=== PATIENT | male | born 1935 | race Two or more races ===

== ENCOUNTER 2019-06-06 14:10 | Inpatient (IN) | payer OTHER ==
[~2019-06-06] VITALS: Ht 188 cm; Wt 66.2 kg
[2019-06-15] MEDS ORDERED: SYNTHROID175 MCG PO (13:45)
[2019-06-15] MEDS ORDERED: COZAAR100 MG PO (13:45)
[2019-06-15] MEDS ORDERED: TIMOPTIC10 ML OTIC (13:46)
[2019-06-15] MEDS ORDERED: LATANOPROST 0.7.5 ML OP (13:46)
[2019-06-30] MEDS ORDERED: LOSARTAN POTAS100 MG PO (13:59)
[2019-06-30] MEDS ORDERED: CLOPIDOGREL BIS75 MG PO (13:59)
[2019-06-30] MEDS ORDERED: LIPITOR40 MG PO (13:59)
[2019-06-30] MEDS ORDERED: ASA-EC81 MG PO (14:00)
[2019-06-30] MEDS ORDERED: LOPRESSOR25 MG PO (14:00)
== END 2019-06-30 14:58 | disposition home or self-care (01) | DRG 329 ==
LOC: O/R 06-15 10:45 → SURG 06-19 07:00 → O/R 06-19 07:32 → SURG 06-19 10:45
PROVIDERS: ADMIT Surgery
PROC: 0DTP4ZZ Resection of Rectum, Percutaneous Endoscopic Approach (ICD-10-PCS; 2019-06-19)
PROC: 0DTQ4ZZ Resection of Anus, Percutaneous Endoscopic Approach (ICD-10-PCS; 2019-06-19)
PROC: 0D1N4Z4 Bypass Sigmoid Colon to Cutaneous, Percutaneous Endoscopic Approach (ICD-10-PCS; 2019-06-19)
PROC: 0DTN4ZZ Resection of Sigmoid Colon, Percutaneous Endoscopic Approach (ICD-10-PCS; principal; 2019-06-19 07:00)
PROC: 4A12X4Z Monitoring of Cardiac Electrical Activity, External Approach (ICD-10-PCS; 2019-06-20)
PROC: 4A033R1 Measurement of Arterial Saturation, Peripheral, Percutaneous Approach (ICD-10-PCS; 2019-06-20)
PROC: 30233N1 Transfusion of Nonautologous Red Blood Cells into Peripheral Vein, Percutaneous Approach (ICD-10-PCS; 2019-06-22)
PROC: B246ZZZ Ultrasonography of Right and Left Heart (ICD-10-PCS; 2019-06-22)
PROC: BW28ZZZ Computerized Tomography (CT Scan) of Head (ICD-10-PCS; 2019-06-22)
PROC: BB24ZZZ Computerized Tomography (CT Scan) of Bilateral Lungs (ICD-10-PCS; 2019-06-22)
PROC: B246ZZZ Ultrasonography of Right and Left Heart (ICD-10-PCS; 2019-06-26)
PROC: 4A02XM4 Measurement of Cardiac Total Activity, External Approach (ICD-10-PCS; 2019-06-29)
PROC: 3E033HZ Introduction of Radioactive Substance into Peripheral Vein, Percutaneous Approach (ICD-10-PCS; 2019-06-29)
DX: C20 Malignant neoplasm of rectum (principal); I21.4 Non-ST elevation (NSTEMI) myocardial infarction; I97.191 Other postprocedural cardiac functional disturbances following other surgery; D62 Acute posthemorrhagic anemia; G97.82 Other postprocedural complications and disorders of nervous system; J95.89 Other postprocedural complications and disorders of respiratory system, not elsewhere classified; J91.8 Pleural effusion in other conditions classified elsewhere; I48.0 Paroxysmal atrial fibrillation; I11.9 Hypertensive heart disease without heart failure; R41.82 Altered mental status, unspecified; H40.89 Other specified glaucoma; I07.1 Rheumatic tricuspid insufficiency; I34.0 Nonrheumatic mitral (valve) insufficiency

== ENCOUNTER → 2020-12-19 | Day surgery (SDC) | payer OTHER ==
[~2020-12-19] MED LIST: ASA-EC81 MG PO; CLOPIDOGREL BIS75 MG PO; COZAAR100 MG PO; LATANOPROST 0.7.5 ML OP; LIPITOR40 MG PO; LOPRESSOR25 MG PO; LOSARTAN POTAS100 MG PO; SYNTHROID175 MCG PO; TIMOPTIC10 ML OTIC
== END | disposition home or self-care (01) ==
LOC: ADM 12-13 12:45 → AMB-ENDOS 12:08
PROVIDERS: ATTEND Surgery
DX: K62.89 Other specified diseases of anus and rectum (principal); Z20.822 Contact with and (suspected) exposure to COVID-19